=== PATIENT | male | born 1960 | race Caucasian/White ===

== ENCOUNTER 2016-02-24 | Outpatient (CLI) | payer MEDICARE, OTHER | END 2016-02-24 19:41 | disposition critical access hospital (66) | CPT/HCPCS: A0425; A0429 ==

== ENCOUNTER 2016-02-24 19:59 | Emergency (ER) | payer MEDICARE, OTHER ==
[2016-02-24] MEDS ORDERED: SODIUM CHLORIDE 0.9% 1,000 ML IV ONE ×2 (20:14→20:22)
== END 2016-02-24 23:38 | disposition home or self-care (01) ==
DX: R55 Syncope and collapse (principal); I95.1 Orthostatic hypotension; I10 Essential (primary) hypertension; E11.9 Type 2 diabetes mellitus without complications; Z79.84 Long term (current) use of oral hypoglycemic drugs; Z86.73 Personal history of transient ischemic attack (TIA), and cerebral infarction without residual deficits

== ENCOUNTER 2016-06-22 10:28 | Outpatient (CLI) | payer MEDICARE, OTHER | END 2016-06-22 10:29 | disposition home or self-care (01) | LOC: SC 10:28 | PROVIDERS: ATTEND Nurse Practitioner Family | DX: G47.33 Obstructive sleep apnea (adult) (pediatric) (principal) | CPT/HCPCS: 99214; G0463; 99212 ==

== ENCOUNTER 2016-08-15 13:31 | Outpatient (CLI) | payer MEDICARE, OTHER | END 2016-08-15 13:32 | disposition home or self-care (01) | LOC: SC 13:31 | PROVIDERS: ATTEND Nurse Practitioner Family | DX: G47.33 Obstructive sleep apnea (adult) (pediatric) (principal) | CPT/HCPCS: 99214; G0463; 99212 ==

== ENCOUNTER 2016-09-20 10:51 | Emergency (ER) | payer MEDICARE, OTHER ==
[2016-09-20 11:01] VITALS: BP 125/85
--- NOTE | 2016-09-20 12:52 | XRAY Preliminary Report ---
Exam: XR Ribs w/PA Chest LT IMPRESSION: Acute left sixth and seventh rib fractures are suspected. Old healed left sixth seventh a nd eighth rib fractures are noted. Hypoventilatory change versus scarring left lung base. No pneumoth orax. [facility] SITE ID: [id number]
--- NOTE | 2016-09-20 12:55 | XRAY Report ---
EXAM: LEFT RIB RADIOGRAPHY EXAM DATE: 09/20/2016 12:14 PM. CLINICAL HISTORY: Fall chest wall contusion and pain . COMPARISON: None. TECHNIQUE: 1 view of the chest and 2 views of the ribs. FINDINGS: Bones: Healed left sixth, seventh, and eighth posterior lateral rib fractures. Superimposed acute lef t sixth and seventh rib fractures are suspected. Lungs: Hypoventilatory changes versus scarring left lung base. No other focal opacities. No pneumotho rax. No pleural effusions. Mediastinum: Heart and mediastinal contours are unremarkable. Other: Degenerative changes shoulders bilaterally. IMPRESSION: Acute left sixth and seventh rib fractures are suspected. Old healed left sixth seventh a nd eighth rib fractures are noted. Hypoventilatory change versus scarring left lung base. No pneumoth orax. [facility] Referring Provider Line: [phone] SITE ID: [id number]
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
[2016-09-20] MEDS ORDERED: HYDROcod/ACETAM 5/325 MG TABLET PO STA (13:09)
[2016-09-20] MEDS ORDERED: HYDROcod/ACETAM 5/325 MG TABLET ONE (13:16)
== END 2016-09-20 13:15 | disposition home or self-care (01) ==
LOC: ED 10:51
DX: S22.42XA Multiple fractures of ribs, left side, initial encounter for closed fracture (principal); W01.198A Fall on same level from slipping, tripping and stumbling with subsequent striking against other object, initial encounter; Y92.017 Garden or yard in single-family (private) house as the place of occurrence of the external cause; I69.954 Hemiplegia and hemiparesis following unspecified cerebrovascular disease affecting left non-dominant side; Z87.820 Personal history of traumatic brain injury; I10 Essential (primary) hypertension; E78.00 Pure hypercholesterolemia, unspecified; E11.9 Type 2 diabetes mellitus without complications; Z79.84 Long term (current) use of oral hypoglycemic drugs
CPT/HCPCS: 71101; 99283; A9270

== ENCOUNTER 2016-10-30 10:25 | Outpatient (CLI) | payer MEDICARE, OTHER | END 2016-10-30 10:26 | disposition home or self-care (01) | LOC: SC 10:25 | PROVIDERS: ATTEND Nurse Practitioner Family | DX: G47.33 Obstructive sleep apnea (adult) (pediatric) (principal) | CPT/HCPCS: 99214; G0463; 99212 ==

== ENCOUNTER 2016-11-20 12:08 | Outpatient (CLI) | payer MEDICARE, OTHER | END 2016-11-20 12:09 | disposition home or self-care (01) | LOC: LAB 12:08 | PROVIDERS: ATTEND Internal Medicine | DX: Z12.5 Encounter for screening for malignant neoplasm of prostate (principal); E29.1 Testicular hypofunction | CPT/HCPCS: 36415; 84403; G0103; 84153 ==

== ENCOUNTER 2017-07-17 16:35 | Outpatient (CLI) | payer MEDICARE, OTHER ==
[2017-07-17 17:04] LABS: CALCIUM 9.3 mg/dL (8.5-10.3); CREATININE 0.7 mg/dL (0.6-1.2)
[2017-07-17 17:21] LABS: HB2 TOTAL 16.7 g/dL; HEMOGLOBIN A1C 1.1 g/dL; HEMOGLOBIN A1C % 8.2 % (4.6-6.2)
== END 2017-07-17 16:36 | disposition home or self-care (01) ==
LOC: LAB 16:35
PROVIDERS: ATTEND Internal Medicine
DX: Z79.899 Other long term (current) drug therapy (principal); E11.9 Type 2 diabetes mellitus without complications
CPT/HCPCS: 36415; 80048; 82607; 83036

== ENCOUNTER 2017-09-24 13:52 | Outpatient (CLI) | payer MEDICARE, OTHER ==
--- NOTE | 2017-09-24 17:20 | XRAY Report ---
Procedure Date: 09/24/2017 Accession Number: [id number] / [id number] Procedure: XR - Knee 3 View LT CPT Code: FULL RESULT: EXAM: LEFT KNEE RADIOGRAPHY EXAM DATE: 09/24/2017 02:23 PM. CLINICAL HISTORY: Knee pain, left. COMPARISON: None. TECHNIQUE: 3 views. FINDINGS: Bones: No fracture. No suspicious focal osseous lesion. Joints: Small joint effusion. Minimal lateral subluxation of the tibia in reference to the femur measuring approximately 3-4 mm. Moderate joint space narrowing with subchondral sclerosis and cystic changes of the lateral compartment. Mild joint space narrowing with minimal osteophytic spurring of the medial compartment. Mild patellar osteophytic spurring without definite joint space narrowing. Soft Tissues: Unremarkable. IMPRESSION: Tricompartmental DJD with small joint effusion, the former greatest and moderate in the lateral compartment. [facility]
== END 2017-09-24 13:53 | disposition home or self-care (01) ==
LOC: DI 13:52
PROVIDERS: ATTEND Internal Medicine
DX: M17.12 Unilateral primary osteoarthritis, left knee (principal)

== ENCOUNTER 2018-01-17 11:03 | Outpatient (CLI) | payer MEDICARE, OTHER ==
--- NOTE | 2018-01-17 13:54 | XRAY Report ---
Reason: PAIN IN TOES L FOOT Procedure Date: 01/17/2018 Accession Number: [id number] / [id number] Procedure: XR - Foot 3 View LT CPT Code: FULL RESULT: EXAM: LEFT FOOT RADIOGRAPHY EXAM DATE: 01/17/2018 11:19 AM. CLINICAL HISTORY: Pain in toes left foot. COMPARISON: None. TECHNIQUE: 3 views. FINDINGS: Bones: No fracture or dislocation is identified. Joints: Normal. No subluxations. Soft Tissues: There is a 6 mm radiodense foreign body in the soft tissues of the plantar foot approximately 9 cm anterior to the soft tissue heel. IMPRESSION: Radiopaque foreign body as described. [facility]
== END 2018-01-17 11:04 | disposition home or self-care (01) ==
LOC: DI 11:03
PROVIDERS: ATTEND Podiatrist
DX: M79.672 Pain in left foot (principal); M79.5 Residual foreign body in soft tissue

== ENCOUNTER 2018-03-14 12:00 | Outpatient (CLI) | payer MEDICARE, OTHER ==
[2018-03-14 12:18] LABS: BASOPHILS # (AUTO) 0.1 10^3/uL (0.0-0.1); BASOPHILS % (AUTO) 1.1 %; EOSINOPHILS # (AUTO) 0.1 10^3/uL (0.0-0.7); EOSINOPHILS % (AUTO) 1.2 %; HGB - HEMOGLOBIN 15.3 g/dL (14.0-18.0); LYMPHOCYTES # (AUTO) 3.1 10^3/uL (1.5-3.5); LYMPHOCYTES % (AUTO) 29.3 %; MEAN CORPUSCULAR HEMOGLOBIN 32.1 pg (27.0-31.0); MEAN CORPUSCULAR HGB CONC 36.1 g/dL (32.0-36.0); MEAN CORPUSCULAR VOLUME 88.9 fL (80.0-94.0); MEAN PLATELET VOLUME 9.6 fL (7.4-11.4); MONOCYTES # (AUTO) 0.7 10^3/uL (0.0-1.0); MONOCYTES % (AUTO) 6.5 %; NEUTROPHILS # (AUTO) 6.6 10^3/uL (1.5-6.6); NEUTROPHILS % (AUTO) 61.9 %; PLT - PLATELET COUNT 209 10^3/uL (130-450); RED BLOOD COUNT 4.78 10^6/uL (4.70-6.10); RED CELL DISTRIBUTION WIDTH 13.6 % (12.0-15.0); WHITE BLOOD COUNT 10.6 x10^3/uL (4.8-10.8)
[2018-03-14 13:13] LABS: ALBUMIN 4.2 g/dL (3.2-5.5); ALBUMIN/GLOBULIN RATIO 1.4 (1.0-2.2); BILIRUBIN,TOTAL 0.6 mg/dL (0.2-1.0); CALCIUM 9.1 mg/dL (8.5-10.3); CREATININE 0.7 mg/dL (0.6-1.2); TOTAL PROTEIN 7.1 g/dL (6.7-8.2)
[2018-03-14 14:47] LABS: HEMOGLOBIN A1C 0.99 g/dL; HEMOGLOBIN A1C % 7.8 % (4.6-6.2)
== END 2018-03-14 12:01 | disposition home or self-care (01) ==
LOC: LAB 12:00
PROVIDERS: ATTEND Internal Medicine
DX: Z01.812 Encounter for preprocedural laboratory examination (principal); E11.9 Type 2 diabetes mellitus without complications; Z79.899 Other long term (current) drug therapy
CPT/HCPCS: 36415; 80053; 82607; 83036; 85025; 87640

== ENCOUNTER 2018-05-10 10:20 | Outpatient (CLI) | payer MEDICARE, OTHER ==
[2018-05-10 10:48] LABS: CALCIUM 9.6 mg/dL (8.5-10.3); CREATININE 0.9 mg/dL (0.6-1.2)
[2018-05-10 11:01] LABS: HEMOGLOBIN A1C 0.97 g/dL; HEMOGLOBIN A1C % 7.4 % (4.6-6.2)
== END 2018-05-10 10:21 | disposition home or self-care (01) ==
LOC: LAB 10:20
PROVIDERS: ATTEND Internal Medicine
DX: Z79.899 Other long term (current) drug therapy (principal); E11.9 Type 2 diabetes mellitus without complications
CPT/HCPCS: 36415; 80048; 82607; 83036

== ENCOUNTER 2018-11-06 09:51 | Outpatient (CLI) | payer MEDICARE, OTHER ==
[2018-11-06 10:30] LABS: BASOPHILS # (AUTO) 0.1 10^3/uL (0.0-0.1); BASOPHILS % (AUTO) 0.6 %; EOSINOPHILS # (AUTO) 0.1 10^3/uL (0.0-0.7); EOSINOPHILS % (AUTO) 1.2 %; HGB - HEMOGLOBIN 15.4 g/dL (14.0-18.0); LYMPHOCYTES # (AUTO) 2.6 10^3/uL (1.5-3.5); LYMPHOCYTES % (AUTO) 26.7 %; MEAN CORPUSCULAR HEMOGLOBIN 31.4 pg (27.0-31.0); MEAN CORPUSCULAR HGB CONC 35.3 g/dL (32.0-36.0); MEAN PLATELET VOLUME 11.4 fL (7.4-11.4); MONOCYTES # (AUTO) 0.5 10^3/uL (0.0-1.0); MONOCYTES % (AUTO) 5.5 %; NEUTROPHILS # (AUTO) 6.2 10^3/uL (1.5-6.6); NEUTROPHILS % (AUTO) 65.4 %; PLT - PLATELET COUNT 203 10^3/uL (130-450); RED CELL DISTRIBUTION WIDTH 13.2 % (12.0-15.0); WHITE BLOOD COUNT 9.6 x10^3/uL (4.8-10.8)
[2018-11-06 10:51] LABS: ALBUMIN 4.3 g/dL (3.2-5.5); ALBUMIN/GLOBULIN RATIO 1.7 (1.0-2.2); ALKALINE PHOSPHATASE 56 IU/L (42-121); ALT ALANINE AMINOTRANSFERASE 16 IU/L (10-60); AST ASPARTATE AMINOTRANSFERASE 17 IU/L (10-42); BILIRUBIN,TOTAL 0.6 mg/dL (0.2-1.0); BUN - BLOOD UREA NITROGEN 18 mg/dL (6-20); CALCIUM 9.2 mg/dL (8.5-10.3); CARBON DIOXIDE - CO2 25 mmol/L (21-32); CHLORIDE 106 mmol/L (101-111); CHOL/HDL RATIO 5.4 (<5.0); CHOLESTEROL 196 mg/dL; CREATININE 0.8 mg/dL (0.6-1.2); GFR - MDRD 99 (>89); GLUCOSE 105 mg/dL (70-100); HDL CHOLESTEROL 36 mg/dL; LDL CHOLESTEROL,CALCULATED 100 mg/dL; LDL/HDL RATIO 2.8 (<3.6); SODIUM 139 mmol/L (135-145); TOTAL PROTEIN 6.9 g/dL (6.7-8.2); VLDL CHOLESTEROL 60 mg/dL
[2018-11-06 11:50] LABS: HB2 TOTAL 15.7 g/dL; HEMOGLOBIN A1C 0.62 g/dL; HEMOGLOBIN A1C % 5.8 % (4.6-6.2)
[2018-11-06 12:03] LABS: PSA SCREEN (Z12.5) 0.41 ng/mL (0.000-2.000)
[2018-11-06 12:19] LABS: CREATININE,URINE 155.6 mg/dL; MICROALBUM/CREATININE RATIO,UR 2.6 ug/mg (<30.0); MICROALBUMIN,URINE 0.4 mg/dL (0-300.0)
== END 2018-11-06 09:52 | disposition home or self-care (01) ==
LOC: LAB 09:51
PROVIDERS: ATTEND Internal Medicine
DX: E11.9 Type 2 diabetes mellitus without complications (principal); R63.4 Abnormal weight loss; Z79.899 Other long term (current) drug therapy; Z12.5 Encounter for screening for malignant neoplasm of prostate; G47.33 Obstructive sleep apnea (adult) (pediatric); K21.9 Gastro-esophageal reflux disease without esophagitis; E29.1 Testicular hypofunction; Z13.6 Encounter for screening for cardiovascular disorders
CPT/HCPCS: 36415; 80053; 80061; 82043; 82570; 82607; 83036; 84403; 85025; G0103; 83721; 84153

== ENCOUNTER 2018-12-25 09:27 | Outpatient (CLI) | payer MEDICARE, OTHER ==
--- NOTE | 2018-12-25 22:01 | XRAY Report ---
Reason: PAIN IN RIGHT KNEE Procedure Date: 12/25/2018 Accession Number: [id number] / [id number] Procedure: XR - Knee 3 View RT CPT Code: Final Report FULL RESULT: EXAM: RIGHT KNEE RADIOGRAPHY EXAM DATE: 12/25/2018 09:47 AM. CLINICAL HISTORY: PAIN IN RIGHT KNEE. COMPARISON: KNEE 1 VIEW BILAT 02/21/2018 8:10 AM. TECHNIQUE: 3 views. FINDINGS: Bones: There is old fracture deformity seen about the fibular head. No acute fracture noted. Joints: Mild osteoarthritic changes seen. No significant joint effusion present. Soft Tissues: Normal. No soft tissue swelling. IMPRESSION: Old fracture deformity noted about the fibular head with mild osteoarthritic changes. [facility]
== END 2018-12-25 09:28 | disposition home or self-care (01) ==
LOC: DI 09:27
PROVIDERS: ATTEND Internal Medicine
DX: M17.11 Unilateral primary osteoarthritis, right knee (principal); M21.861 Other specified acquired deformities of right lower leg

== ENCOUNTER 2019-01-03 09:44 | Outpatient (CLI) | payer MEDICARE, OTHER ==
--- NOTE | 2019-01-03 11:27 | MRI Report ---
Reason: KNEE PAIN RT Procedure Date: 01/03/2019 Accession Number: [id number] / [id number] Procedure: MRI - Knee RT W/O CPT Code: Final Report FULL RESULT: EXAM: RIGHT KNEE MRI WITHOUT CONTRAST EXAM DATE: 01/03/2019 10:48 AM. CLINICAL HISTORY: Right knee pain. COMPARISON: None. TECHNIQUE: Multiplanar, multisequence T1-weighted and fluid-sensitive sequences of the knee without contrast. Other: None. FINDINGS: Cruciate ligaments: The anterior and posterior cruciate ligaments appear intact. Medial meniscus: Intact. No tear is identified. Lateral meniscus: Truncation and irregularity at the free margin of the mid body consistent with ill-defined partial-thickness radial tear and associated degeneration. Intrasubstance degeneration at the anterior horn. Collateral ligaments: The medial and fibular collateral limits. Intact. Bones and articular surfaces: Lateral tracking of the patella. Mild cartilage thinning and surface irregularity in the lateral compartment. Small amount of subchondral edema at the periphery of the weightbearing lateral compartment. Small joint effusion. Medial and patellofemoral compartments demonstrate no significant articular cartilage defects. Extensor mechanism: The patellar tendon and quadriceps insertion appear intact. IMPRESSION: 1. Ill-defined partial-thickness radial tear and degeneration of the free margin of the body of the lateral meniscus. 2. Mild lateral compartment osteoarthritis. 3. Small joint effusion. [facility]
== END 2019-01-03 09:45 | disposition home or self-care (01) ==
LOC: DI 09:44
PROVIDERS: ATTEND Internal Medicine
DX: S83.281A Other tear of lateral meniscus, current injury, right knee, initial encounter (principal); M17.11 Unilateral primary osteoarthritis, right knee; M25.461 Effusion, right knee

== ENCOUNTER 2019-12-24 08:46 | Day surgery (SDC) | payer MEDICARE, OTHER ==
[2019-12-24] MEDS ORDERED: LACTATED RINGERS 1,000 ML IV ONE ×2 (08:51→10:18)
[2019-12-24] MEDS ORDERED: MIDAZOLAM 2 MG/2 ML VIAL IVP ONE (09:50)
[2019-12-24] MEDS ORDERED: fentaNYL 250 MCG/5 ML VIAL IVP ONE (09:50)
[2019-12-24 11:01] VITALS: BP 107/86
== END 2019-12-24 08:47 | disposition home or self-care (01) ==
LOC: SDS 08:46
PROVIDERS: ATTEND Surgery
PROC: 0DBN8ZZ Excision of Sigmoid Colon, Via Natural or Artificial Opening Endoscopic (ICD-10-PCS; principal; 2019-12-24 09:45)
DX: Z12.11 Encounter for screening for malignant neoplasm of colon (principal); K63.5 Polyp of colon; K64.8 Other hemorrhoids; E11.9 Type 2 diabetes mellitus without complications; Z80.0 Family history of malignant neoplasm of digestive organs; Z79.84 Long term (current) use of oral hypoglycemic drugs; R41.3 Other amnesia
CPT/HCPCS: 45380; J3010; J7120

== ENCOUNTER 2020-11-08 11:04 | Outpatient (CLI) | payer MEDICARE, OTHER ==
[2020-11-08 11:51] LABS: CALCIUM 10.1 mg/dL (8.5-10.3); CREATININE 0.8 mg/dL (0.6-1.2); POTASSIUM 4.6 mmol/L (3.5-5.0)
[2020-11-08 13:29] LABS: ESTIMATED AVERAGE GLUCOSE 126 mg/dL (70-100)
--- NOTE | 2020-11-08 17:35 | XRAY Report ---
PROCEDURE: Humerus RT INDICATIONS: RT ARM PAIN TECHNIQUE: 2 views of the humerus were acquired. COMPARISON: None. FINDINGS: Bones: No fractures or dislocations. Degenerative change at the AC joint. No suspicious bony lesion s. Soft tissues: No suspicious soft tissue calcifications. IMPRESSION: No acute osseous abnormality. Reviewed by: Payam Fernandez MD on 11/08/2020 5:34 PM PDT Approved by: Payam Fernandez MD on 11/08/2020 5:34 PM PDT Station ID: [id number]
== END 2020-11-08 11:05 | disposition home or self-care (01) ==
LOC: LAB 11:04 → DI 11:05
PROVIDERS: ATTEND Internal Medicine
DX: M79.601 Pain in right arm (principal); E11.9 Type 2 diabetes mellitus without complications; Z79.899 Other long term (current) drug therapy
CPT/HCPCS: 36415; 80048; 82607; 83036

== ENCOUNTER 2021-02-23 08:25 | Outpatient (CLI) | payer MEDICARE, OTHER ==
[2021-02-23 08:58] LABS: BASOPHILS # (AUTO) 0.1 10^3/uL (0.0-0.1); BASOPHILS % (AUTO) 0.7 %; EOSINOPHILS # (AUTO) 0.1 10^3/uL (0.0-0.7); EOSINOPHILS % (AUTO) 1.2 %; HGB - HEMOGLOBIN 15.3 g/dL (14.0-18.0); LYMPHOCYTES # (AUTO) 2.5 10^3/uL (1.5-3.5); LYMPHOCYTES % (AUTO) 24.6 %; MEAN CORPUSCULAR HEMOGLOBIN 30.1 pg (27.0-31.0); MEAN CORPUSCULAR HGB CONC 34.8 g/dL (32.0-36.0); MEAN CORPUSCULAR VOLUME 86.4 fL (80.0-94.0); MEAN PLATELET VOLUME 10.2 fL (7.4-11.4); MONOCYTES # (AUTO) 0.6 10^3/uL (0.0-1.0); MONOCYTES % (AUTO) 5.5 %; NEUTROPHILS # (AUTO) 6.9 10^3/uL (1.5-6.6); NEUTROPHILS % (AUTO) 66.9 %; PLT - PLATELET COUNT 210 10^3/uL (130-450); RED BLOOD COUNT 5.09 10^6/uL (4.70-6.10); RED CELL DISTRIBUTION WIDTH 13.2 % (12.0-15.0); WHITE BLOOD COUNT 10.3 x10^3/uL (4.8-10.8)
[2021-02-23 09:19] LABS: ALBUMIN 4.1 g/dL (3.2-5.5); ALBUMIN/GLOBULIN RATIO 1.6 (1.0-2.2); ALKALINE PHOSPHATASE 64 IU/L (42-121); ALT ALANINE AMINOTRANSFERASE 17 IU/L (10-60); AST ASPARTATE AMINOTRANSFERASE 17 IU/L (10-42); BILIRUBIN,TOTAL 0.6 mg/dL (0.2-1.0); BUN - BLOOD UREA NITROGEN 14 mg/dL (6-20); CALCIUM 9.4 mg/dL (8.5-10.3); CARBON DIOXIDE - CO2 29 mmol/L (21-32); CHLORIDE 100 mmol/L (101-111); CHOL/HDL RATIO 4.9 (<5.0); CHOLESTEROL 188 mg/dL; CREATININE 0.9 mg/dL (0.6-1.2); GFR - MDRD 86 (>89); GLUCOSE 185 mg/dL (70-100); HDL CHOLESTEROL 38 mg/dL; LDL CHOLESTEROL,CALCULATED 109 mg/dL; LDL/HDL RATIO 2.9 (<3.6); SODIUM 137 mmol/L (135-145); TOTAL PROTEIN 6.7 g/dL (6.7-8.2); TRIGLYCERIDES 204 mg/dL; VLDL CHOLESTEROL 41 mg/dL
[2021-02-23 10:00] LABS: CREATININE,URINE 135.8 mg/dL; MICROALBUM/CREATININE RATIO,UR 2.2 ug/mg (<30.0); MICROALBUMIN,URINE 0.3 mg/dL (0-300.0)
[2021-02-24 17:42] LABS: ESTIMATED AVERAGE GLUCOSE 148 mg/dL (70-100); HEMOGLOBIN A1c% 6.8 % (4.27-6.07)
== END 2021-02-23 08:26 | disposition home or self-care (01) ==
LOC: LAB 08:25
PROVIDERS: ATTEND Internal Medicine
DX: E11.9 Type 2 diabetes mellitus without complications (principal); E78.5 Hyperlipidemia, unspecified; R35.0 Frequency of micturition; Z79.899 Other long term (current) drug therapy; Z13.6 Encounter for screening for cardiovascular disorders
CPT/HCPCS: 36415; 80053; 80061; 82043; 82570; 83036; 83721; 84153; 84403; 84443; 85025

== ENCOUNTER 2022-06-19 10:16 | Outpatient (CLI) | payer MEDICARE, OTHER ==
--- NOTE | 2022-06-19 12:50 | SLEEP CARE CONSULTATION ---
Information from patient questionnaire entered by Maryam Serrato. I have reviewed and concur with the information entered by Maryam Serrato. This document represents the service I personally performed and the decisions made by me, Donny Jones MD, [facility]. History of Present Illness Service Date and Time: 06/19/2022 1016 Reason for Visit: New patient Chief Complaint: reports: Fatigue, Frequent awakenings at night Date of Onset: 3YRS Usual bedtime: 10-12 Time it takes to fall asleep: 3-4HRS Number of times waking at night: 3-4 Reasons for waking at night: reports: Other (DOG NEEDS OUT) Toss, Turn, or Twitch while sleeping: No Recalls having dreams: No Usually gets out of bed at: 730AM Feels refreshed in the morning: No Morning headache: No Sleepy or fatigued during the day: Yes Ever fallen asleep while driving: No Takes day naps: No Dreams during day naps: No Prior sleep studies: Yes Year and Where: 2016 Additional HPI information: Mr. Arteaga was diagnosed to have moderate (AHI 18.5 in 2016) obstructive sleep apnea-hypopnea syndrome returned today for his 1 month follow up of CPAP therapy. He was last seen 6 years ago. He used a CPAP for a little while then quit because of anxiety. Since then, he lost 60 lbs. He presently complains of not sleeping at all due to anxiety and urinary frequency. He is being treated by a psychiatrist and has a counselor. Quetiapine was prescribed. He goes to bed at around 10 pm and gets out of bed at 7:30 am. It takes him 2 4 hours to fall asleep. He does not nap. He said when he was in the [place], 5 hours of sleep was enough for him. - Parasomnia Symptoms Ever been unable to move upon waking from sleep: No Walks in sleep: No Talks in sleep: No Ever acted out dreams in sleep: No Ever felt weak in the knees when startled or emotional: No Bothered by creepy, crawly, restless sensations in legs: No Problems with memory or concentration: Yes Subjective Initial [place] Sleepiness Scale score: 2 (06/19/22) Past Medical History Past Medical History: reports: Diabetes, Stroke (08/1981), Arthritis, Anxiety, Depression Social History The patient's occupation is a RE. Patient is and lives in [place]. Have you smoked in the past 12 months: No Alcohol use: Yes Caffeine use: Yes Caffeine amount and frequency: 3CUPS Family History Family history of sleep disordered breathing: Yes Family Hx Sleep Apnea: Sibling: Sleep apnea - Treated Allergies and Home Medications Known drug allergies: Yes ([facility]) Drug allergies reviewed: Yes Home medication list reviewed: Yes Allergy and home medication list: Allergies Penicillins Allergy (Verified 06/16/22 14:04) Unknown phenytoin sodium * [From Dilantin] Allergy (Verified 06/16/22 14:04) Unknown phenytoin sodium extended * [From Dilantin] Allergy (Verified 06/16/22 14:04) Unknown Review of Systems Weight loss over past 5 years: 60 Cardiovascular: denies: high blood pressure, palpitations, chest pain, irregular heart rate or pulse, leg or foot swelling, have to sleep sitting up, other Respiratory: denies: shortness of breath, wheeze, sputum production, chronic cough, other Gastrointestinal: denies: heartburn, difficulty swallowing, nausea, vomitting, diarrhea, abdominal pain, other Urinary: reports: incontinence, frequency, urgency, impotence Neurological: reports: gait or balance problems Ear/Nose/Throat: denies: nasal congestion, sinus problems, nose bleeds, dry mouth/throat, hoarseness, injury to nose, tonsillectomy, wisdom teeth removed, other Immunologic: reports: itching Physical Exam Vital signs obtained and entered by: MARYAM Sheikh MA Blood Pressure: 112/68 (LEFT ARM) Cuff size: regular Heart Rate: 110 O2 Saturation: 97 Height: 6 ft Weight: 192 lb Weight change since last visit: 40 Body Mass Index: 26.0 BMI Classification: Overweight Neck circumference: 16 HEENT: No craniofacial malformation Neurologic: intact Impression and Plan IMPRESSION: 1. Obstructive Sleep Apnea-Hypopnea Syndrome, moderate, presently untreated by because of the weight loss, he may not have the condition anymore. A new in-laboratory polysomnography will have to be performed. 2. Insomnia due to underlying psychiatric disordersanxiety and post-traumatic stress disorder. The patient is also spending excessive time in bed at night up to 9.5 hours. Because he said 5 hours of sleep used to be enough for him, I recommend he spends only 7 hours in bed. If he continues to wake up at 7:30 am, he should not be in bed until 12:30 am. On the other hand, if he wants to go to bed at 10:30 pm, he must first wake consistently at 5:30 am every morning. The low [place] Sleepiness Scale score of only 2 also confirms that he has been getting adequate amount of sleep all along. His goal, therefore, should not be to sleep more, but to spend less time lying awake. PLAN: 1. Schedule an in-laboratory polysomnography. 2. Maintain a regular wake up time and spend no more than 7 hours in bed at night. Avoid naps. 3. Return for follow up after the sleep study. Follow up with Sleep Care in: 1-2 months Plan: in-lab polysomnography Visit Type: In Office Time Spent with Patient (minutes): 15 Provider Statement: I spent 100% of the Face to Face Visit with the patient with greater than 50% spent counseling the patient and coordination of care.
[2022-06-19 12:51] VITALS: BP 112/68
== END 2022-06-19 10:17 | disposition home or self-care (01) ==
LOC: SC 10:16
PROVIDERS: ATTEND Internal Medicine Pulmonary Disease
DX: G47.33 Obstructive sleep apnea (adult) (pediatric) (principal); F41.9 Anxiety disorder, unspecified; F43.10 Post-traumatic stress disorder, unspecified; F51.05 Insomnia due to other mental disorder
CPT/HCPCS: 99202; G0463; 99212

== ENCOUNTER 2022-07-19 19:24 | Outpatient (CLI) | payer MEDICARE, OTHER ==
--- NOTE | 2022-07-20 13:45 | Ultrasound Report ---
PROCEDURE: Head or Neck Soft Tissue INDICATIONS: LEFT SCALP LUMP TECHNIQUE: Real-time scanning was performed of the soft tissue, with image documentation. COMPARISON: None FINDINGS: At the site of concern, there is a lobulated avascular cystic lesion measuring approximately 5.7 x 3. 4 x 1.0 cm with internal echoes. Surrounding subcutaneous tissue unremarkable. IMPRESSION: Palpable left scalp abnormality corresponds with a vascular complex fluid, possible old evolving hal wendy or seroma Reviewed by: Emmett Feldman MD on 07/20/2022 12:44 PM AKPAM Approved by: Emmett Feldman MD on 07/20/2022 12:44 PM AKPAM Station ID: [id number]
== END 2022-07-19 19:25 | disposition home or self-care (01) ==
LOC: DI 19:24
PROVIDERS: ATTEND Internal Medicine
DX: R22.9 Localized swelling, mass and lump, unspecified (principal)

== ENCOUNTER 2023-07-26 16:08 | Outpatient (CLI) | payer MEDICARE, OTHER ==
--- NOTE | 2023-07-26 17:07 | XRAY Report ---
PROCEDURE: Knee 3V LT INDICATIONS: LEFT KNEE PAIN TECHNIQUE: 3 views of the knee(s) were acquired. COMPARISON: 09/24/2017. FINDINGS: Bones: No fractures or dislocations. Tricompartment degenerative arthritis with [id number] appear ance in the lateral compartment, slightly progressed. No suspicious bony lesions. Soft tissues: Small knee joint effusion. No suspicious soft tissue calcifications or masses. IMPRESSION: Slight interval progression of tricompartment degenerative arthritis with [id number]-[id number] appearance in the lateral compartment. Reviewed by: Rohith Brooks MD on 07/26/2023 5:06 PM PDT Approved by: Rohith Brooks MD on 07/26/2023 5:06 PM PDT Station ID: [id number]
== END 2023-07-26 16:09 | disposition home or self-care (01) ==
LOC: DI 16:08
PROVIDERS: ATTEND Internal Medicine
DX: M17.12 Unilateral primary osteoarthritis, left knee (principal)

== ENCOUNTER 2023-07-30 11:46 | Emergency (ER) | payer MEDICARE, OTHER ==
--- NOTE | 2023-07-30 12:34 | ED Physician Documentation ---
PD HPI LOWER EXT INJURY - Stated complaint Stated Complaint: LT KNEE PX - Chief complaint Chief Complaint: Ext Problem - History obtained from History obtained from: Patient - History of Present Illness PD HPI LOW EXT INJURY LOCATION: Left, Knee Type of injury: Other (ongoing arthritis of the knees, left more. Has seen Ortho in past. Has had worse pain recently and wishing steroid injection inknee. Is getting referral to new Ortho and will take awhile.). No: Fall, Twist PD PAST MEDICAL HISTORY - Past Medical History Cardiovascular: None Respiratory: None, Sleep apnea Endocrine/Autoimmune: Type 2 diabetes GI: None : None HEENT: None Psych: None Musculoskeletal: None Derm: None - Past Surgical History Past Surgical History: Yes General: Other Cardiovascular: Other - Present Medications Home Medications: Ambulatory Orders Medication Instructions Recorded Confirmed Metformin HCl 500 mg PO BID 03/30/14 06/19/22 Quetiapine Fumarate [Seroquel Xr] See Rx Instructions .ROUTE .COMPLEX 06/19/22 06/19/22 HYDROcod/ACETAM 5/325 [[facility] 5/325] 1 ea PO Q6H PRN #18 tablet 07/30/23 Meloxicam [Mobic] 7.5 mg PO BID 10 Days #20 tablet 07/30/23 - Allergies Allergies/Adverse Reactions: Allergies Allergy/AdvReac Type Severity Reaction Status Date / Time Penicillins Allergy Unknown Verified 07/30/23 11:57 phenytoin sodium * Allergy Unknown Verified 07/30/23 11:57 [From Dilantin] phenytoin sodium extended * Allergy Unknown Verified 07/30/23 11:57 [From Dilantin] - Social History Does the pt smoke?: No Smoking Status: Never smoker Does the pt drink ETOH?: No Does the pt have substance abuse?: No - Immunizations Immunizations are current?: Yes - POLST Patient has POLST: No PD ED PE NORMAL - Vitals Vital signs reviewed: Yes - General General: Alert and oriented X 3, No acute distress, Well developed/nourished - Derm Derm: Normal color, Warm and dry - Extremities Extremities: Other - Neuro Neuro: No motor deficit, No sensory deficit Results - Vitals Vitals: Oxygen O2 Source Room air PD Medical Decision Making - ED course Complexity details: considered differential, d/w patient ED course: xrays recently with arthritic changes. Injection into knee with Kenalog 40 mg and bupivocaine after clenasing skin. Fone without complicaitons. Departure - Departure Disposition: 01 Home, Self Care Clinical Impression: Arthritis of knee, Knee pain Condition: Stable Record reviewed to determine appropriate education?: Yes Follow-Up: Elza Levin MD [Primary Care Provider] - Prescriptions: Meloxicam [Mobic] 7.5 mg PO BID 10 Days #20 tablet HYDROcod/ACETAM 5/325 [[facility] 5/325] 1 ea PO Q6H PRN #18 tablet PRN Reason: Pain Comments: We did do an injection in the knee with triamcinolone and bupivacaine. Although this will help decrease the inflammation and pain in the joint short-term and even reasonably long-term. Follow-up with orthopedics however for further evaluation of the knee. Your x-ray from the other day did show significant arthritis and so some anti- inflammatory and there is appropriate. Oral anterior inflammatories and medication for pain can you be appropriate as well. I wrote for meloxicam twice daily with food for the next 7 to 10 days. Add acetaminophen/Tylenol 500 to 650 mg 4 times daily to help with the pain. Add hydrocodone every 6-8 hours if needed for worse pain. I sent a prescription to the [facility] pharmacy. I am prescribing a short course of narcotic pain medication for you. These are potentially dangerous and addictive medications that should be used carefully. These medications may constipate you. Take an uosi-jmd-oxtzhgr stool softener such as docusate twice daily with plenty of water while taking these medications. If you go 24 hours without a bowel movement, take btut-ayu-iznnukx MiraLAX, per package instructions. Do not drink or drive while taking these medications. If you received narcotic or sedating medications while in the emergency department do not drive for 24 hours. Store this medication in a safe, secure place and out of reach of children. It is a violation of federal law to give or sell this medication to another person or to use in a manner other than prescribed. The ED will not refill narcotic prescriptions, including prescriptions lost or stolen. You can dispose of unwanted medications at the [facility]'s office or at several pharmacies such as [facility]. Forms: PCP List Discharge Date/Time: 07/30/23 14:12
[2023-07-30] MEDS: TRIAMCINOLONE 40 MG/ML VIAL MC STA (13:17)
[2023-07-30 14:14] VITALS: BP 113/86; O2SAT 99
== END 2023-07-30 14:12 | disposition home or self-care (01) ==
LOC: ED 11:46
DX: M17.12 Unilateral primary osteoarthritis, left knee (principal); E11.9 Type 2 diabetes mellitus without complications; Z79.84 Long term (current) use of oral hypoglycemic drugs; Z79.899 Other long term (current) drug therapy
CPT/HCPCS: 20610; 99283

== ENCOUNTER 2023-09-20 10:25 | Outpatient (CLI) | payer MEDICARE, OTHER ==
[2023-09-20 10:39] LABS: BASOPHILS # (AUTO) 0.1 10^3/uL (0.0-0.1); BASOPHILS % (AUTO) 0.8 %; EOSINOPHILS # (AUTO) 0.1 10^3/uL (0.0-0.7); EOSINOPHILS % (AUTO) 1.2 %; HCT - HEMATOCRIT 44.9 % (42.0-52.0); HGB - HEMOGLOBIN 15.2 g/dL (14.0-18.0); LYMPHOCYTES # (AUTO) 2.7 10^3/uL (1.5-3.5); LYMPHOCYTES % (AUTO) 30.9 %; MEAN CORPUSCULAR HGB CONC 33.9 g/dL (32.0-36.0); MEAN CORPUSCULAR VOLUME 88.7 fL (80.0-94.0); MEAN PLATELET VOLUME 10.5 fL (7.4-11.4); MONOCYTES # (AUTO) 0.6 10^3/uL (0.0-1.0); MONOCYTES % (AUTO) 6.9 %; NEUTROPHILS # (AUTO) 5.1 10^3/uL (1.5-6.6); NEUTROPHILS % (AUTO) 59.7 %; PLT - PLATELET COUNT 208 10^3/uL (130-450); RED BLOOD COUNT 5.06 10^6/uL (4.70-6.10); RED CELL DISTRIBUTION WIDTH 12.9 % (12.0-15.0); WHITE BLOOD COUNT 8.6 x10^3/uL (4.8-10.8)
[2023-09-20 10:50] LABS: CREATININE 0.8 mg/dL (0.6-1.3); ESTIMATED AVERAGE GLUCOSE 154 mg/dL (70-100); POTASSIUM 4.4 mmol/L (3.5-4.5)
[2023-09-20 11:33] LABS: BILIRUBIN,URINE NEGATIVE (NEGATIVE); GLUCOSE, URINE (UA) NEGATIVE (NEGATIVE); KETONES,URINE (UA) NEGATIVE (NEGATIVE); LEUKOCYTE ESTERASE, URINE NEGATIVE (NEGATIVE); NITRITE,URINE NEGATIVE (NEGATIVE); OCCULT BLOOD,URINE NEGATIVE (NEGATIVE); PH,URINE 6.5 PH (5.0-7.5); PROTEIN,URINE NEGATIVE (NEGATIVE); UROBILINOGEN,URINE 0.2 (NORMAL) E.U./dL (NORMAL)
[2023-09-20 11:36] LABS: CLARITY,URINE CLEAR (CLEAR)
[2023-09-20 11:39] LABS: BACTERIA,URINE Rare /HPF (None Seen); RBC,URINE 0-5 /HPF (0-5); SQUAMOUS EPITHELIAL CELL,UR RARE Squamous (<= Few); WBC,URINE 0-3 /HPF (0-3)
== END 2023-09-20 10:26 | disposition home or self-care (01) ==
LOC: LAB 10:25
PROVIDERS: ATTEND Orthopaedic Surgery
DX: Z01.818 Encounter for other preprocedural examination (principal); R73.9 Hyperglycemia, unspecified; N39.0 Urinary tract infection, site not specified
CPT/HCPCS: 36415; 80048; 81001; 83036; 85025; 87086; 93005